=== PATIENT | male | born 1965 | race Caucasian/White ===

== ENCOUNTER 2023-01-13 10:21 | Inpatient (IN) | payer SELFPAY ==
[~2023-01-13] VITALS: Ht 167.7 cm; Wt 67.6 kg
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
[2023-01-13 10:41] LABS: BASOPHILS % (AUTO) 0 % (0-10); EOSINOPHILS % (AUTO) 0 % (0-10); HEMATOCRIT 41 % (40-54); HEMOGLOBIN 14.4 g/dL (13.3-17.7); LYMPHOCYTES # (AUTO) 1.6 10^3/uL (1.0-4.0); LYMPHOCYTES % (AUTO) 15 % (12-44); MEAN CORPUSCULAR HEMOGLOBIN 31 pg (25-34); MEAN CORPUSCULAR HGB CONC 35 g/dL (32-36); MEAN CORPUSCULAR VOLUME 88 fL (80-99); MEAN PLATELET VOLUME 11.1 fL (9.0-12.2); MONOCYTES # (AUTO) 0.3 10^3/uL (0.0-1.0); MONOCYTES % (AUTO) 3 % (0-12); NEUTROPHILS # (AUTO) 8.4 10^3/uL (1.8-7.8); NEUTROPHILS % (AUTO) 81 % (42-75); PLATELET COUNT 164 10^3/uL (130-400); WHITE BLOOD COUNT 10.3 10^3/uL (4.3-11.0)
[2023-01-13 10:45] LABS: CLARITY,URINE CLOUDY; COLOR,URINE YELLOW; GLUCOSE, URINE (UA) TRACE (NEGATIVE); KETONES,URINE TRACE (NEGATIVE); LEUKOCYTE ESTERASE ,URINE NEGATIVE (NEGATIVE); NITRITE,URINE NEGATIVE (NEGATIVE); PROTEIN,URINE 1+ (NEGATIVE)
--- NOTE | 2023-01-13 10:56 | Diagnostic Imaging Report ---
INDICATION: Chest congestion and shortness of breath Frontal chest obtained at 1044 a.m. There are extensive bibasilar infiltrates, left worse than right, compatible with pneumonia. There is no pneumothorax or definite pleural fluid. Heart is normal in size. IMPRESSION: Extensive bilateral infiltrates are present compatible with pneumonia, left worse than right. Follow-up is recommended. Dictated by: Dictated on workstation # [id number]
[2023-01-13] MEDS ORDERED: cefTRIAXone 1 GM PRE-MIX 50 ML IV ONE (11:15)
[2023-01-13] MEDS ORDERED: NS IV 1000 ML 1,000 ML IV SCH (11:15)
[2023-01-13] MEDS ORDERED: AZITHROMYCIN INJECTION 500 MG in NS (IVPB) 250 ML IV ONE (11:15)
[2023-01-13 11:18] LABS: CARBON DIOXIDE 22 MMOL/L (21-32); CHLORIDE 85 MMOL/L (98-107); POTASSIUM 4.7 MMOL/L (3.6-5.0); SODIUM 123 MMOL/L (135-145)
[2023-01-13 11:19] LABS: ALANINE AMINOTRANSFERASE 31 U/L (0-55); ALBUMIN 2.7 GM/DL (3.2-4.5); ALKALINE PHOSPHATASE 134 U/L (40-136); BILIRUBIN,TOTAL 1.2 MG/DL (0.1-1.0); BUN/CREATININE RATIO 25; CALCIUM 8.7 MG/DL (8.5-10.1); CREATININE SERUM 1.12 MG/DL (0.60-1.30); GFR ESTIMATED 77; GLUCOSE 84 MG/DL (70-105); MAGNESIUM 1.6 MG/DL (1.6-2.4); TOTAL PROTEIN 6.7 GM/DL (6.4-8.2)
[2023-01-13 11:23] LABS: AMPHETAMINE SCREEN, URINE POSITIVE (NEGATIVE); BARBITURATE SCREEN URINE NEGATIVE (NEGATIVE); BENZODIAZEPINES SCREEN URINE NEGATIVE (NEGATIVE); CANNABINOID SCREEN, URINE NEGATIVE (NEGATIVE); COCAINE SCREEN URINE NEGATIVE (NEGATIVE); METHADONE STAT NEGATIVE (NEGATIVE); OPIATE SCREEN URINE NEGATIVE (NEGATIVE); OXYCODONE STAT NEGATIVE (NEGATIVE); PROPOXYPHENE STAT NEGATIVE (NEGATIVE); TRICYCLIC ANTIDEPRESSANTS SCRE NEGATIVE (NEGATIVE)
[2023-01-13 11:28] LABS: BACTERIA,URINE MODERATE /HPF; SQUAMOUS EPITHELIAL CELL,UR RARE /HPF
[2023-01-13 11:46] LABS: BAND NEUTROPHILS 27 %; BASOPHILS % (MANUAL) 0 %; BLAST CELLS 1 %; EOSINOPHILS % (MANUAL) 0 %; LYMPHOCYTES % (MANUAL) 20 %; MONOCYTES % (MANUAL) 3 %; NEUTROPHILS % (MANUAL) 49 %
[2023-01-13 14:36] LABS: BILIRUBIN,URINE 2+ (NEGATIVE)
[2023-01-13] MEDS ORDERED: ONDANSETRON 4 MG/2 ML (SDV) Z0FRAN IV PRN (14:45)
[2023-01-13] MEDS ORDERED: MELATONIN 3 MG TABLET PO PRN (14:45)
[2023-01-13] MEDS: NS IV 1000 ML 1,000 ML IV SCH (15:04)
[2023-01-13] MEDS: ENOXAPARIN 40 MG/0.4 ML (LOVENOX) SYR SC SCH (15:11)
[2023-01-13 15:13] LABS: POTASSIUM 4.8 MMOL/L (3.6-5.0)
[2023-01-13 15:14] LABS: CALCIUM 8.3 MG/DL (8.5-10.1)
[2023-01-13 15:19] LABS: CREATININE SERUM 0.94 MG/DL (0.60-1.30)
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
[2023-01-13] MEDS: methylPREDNISolone 125 MG (Solu-MEDROL) VIAL IV SCH (17:47)
[2023-01-13] MEDS: ACETAMINOPHEN 325 MG TABLET PO PRN (17:52)
[2023-01-13] MEDS ORDERED: RT-ALBUTEROL/IPRATROPIUM 3 ML (DUONEB) VIAL IH SCH (18:00)
[2023-01-13] MEDS: KETOROLAC 15 MG/ML VIAL IVP PRN (18:25)
[2023-01-13] MEDS: RT-ALBUTEROL/IPRATROPIUM 3 ML (DUONEB) VIAL IH PRN (18:55)
[2023-01-13] MEDS ORDERED: NS IV 1000 ML 1,000 ML IV ONE (21:00)
[2023-01-13] MEDS: RT-ALBUTEROL SULF 2.5 MG/3 ML PRE-MIX VIAL INH SCH (21:35)
[2023-01-13 21:42] LABS: CALCIUM 8.2 MG/DL (8.5-10.1); CREATININE SERUM 0.85 MG/DL (0.60-1.30); POTASSIUM 4.3 MMOL/L (3.6-5.0)
[2023-01-14] MEDS: methylPREDNISolone 125 MG (Solu-MEDROL) VIAL IV SCH ×2 (00:07→06:01)
[2023-01-14] MEDS: NS IV 1000 ML 1,000 ML IV SCH ×4 (00:08→19:57)
[2023-01-14] MEDS: KETOROLAC 15 MG/ML VIAL IVP PRN ×3 (00:10→19:53)
[2023-01-14] MEDS: RT-ALBUTEROL/IPRATROPIUM 3 ML (DUONEB) VIAL IH PRN (02:59)
[2023-01-14 06:18] LABS: HEMATOCRIT 34 % (40-54); HEMOGLOBIN 12.6 g/dL (13.3-17.7); MEAN CORPUSCULAR HEMOGLOBIN 32 pg (25-34); MEAN CORPUSCULAR HGB CONC 37 g/dL (32-36); MEAN CORPUSCULAR VOLUME 86 fL (80-99); MEAN PLATELET VOLUME 11.7 fL (9.0-12.2); PLATELET COUNT 165 10^3/uL (130-400); WHITE BLOOD COUNT 26.8 10^3/uL (4.3-11.0)
[2023-01-14 06:33] LABS: POTASSIUM 4.4 MMOL/L (3.6-5.0)
[2023-01-14 06:34] LABS: CALCIUM 8.1 MG/DL (8.5-10.1)
[2023-01-14 06:38] LABS: CREATININE SERUM 0.7 MG/DL (0.60-1.30)
[2023-01-14] MEDS: RT-ALBUTEROL SULF 2.5 MG/3 ML PRE-MIX VIAL INH SCH ×5 (06:41→21:55)
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
[2023-01-14] MEDS: guaiFENesin/DM (ROBITUSSIN DM) 10 ML UDC PO PRN ×2 (12:14→19:52)
[2023-01-14] MEDS: cefTRIAXone 1 GM PRE-MIX 50 ML IV SCH (12:14)
[2023-01-14] MEDS: ENOXAPARIN 40 MG/0.4 ML (LOVENOX) SYR SC SCH (14:38)
[2023-01-14 15:51] VITALS: BP 124/73
[2023-01-14] MEDS ORDERED: GABA300C PO (16:08)
[2023-01-14] MEDS ORDERED: ACET-2267 PO (16:08)
[2023-01-14] MEDS ORDERED: CALCIUM CARBONATE 500 MG (TUMS) TAB.CHEW PO PRN (16:30)
[2023-01-14 19:33] VITALS: BP 115/67
[2023-01-14] MEDS: ACETAMINOPHEN 325 MG TABLET PO PRN (19:47)
[2023-01-14 23:17] VITALS: BP 131/76
[2023-01-15] MEDS: RT-ALBUTEROL SULF 2.5 MG/3 ML PRE-MIX VIAL INH SCH (02:43)
[2023-01-15 03:43] VITALS: BP 123/76
[2023-01-15 06:21] LABS: HEMATOCRIT 32 % (40-54); HEMOGLOBIN 11.5 g/dL (13.3-17.7); MEAN CORPUSCULAR HEMOGLOBIN 31 pg (25-34); MEAN CORPUSCULAR HGB CONC 36 g/dL (32-36); MEAN CORPUSCULAR VOLUME 86 fL (80-99); MEAN PLATELET VOLUME 11.7 fL (9.0-12.2); PLATELET COUNT 162 10^3/uL (130-400)
[2023-01-15 06:35] LABS: POTASSIUM 3.8 MMOL/L (3.6-5.0)
[2023-01-15 06:36] LABS: CALCIUM 8.8 MG/DL (8.5-10.1)
[2023-01-15 06:38] LABS: WHITE BLOOD COUNT 37.5 10^3/uL (4.3-11.0)
[2023-01-15 06:40] LABS: CREATININE SERUM 0.68 MG/DL (0.60-1.30)
[2023-01-15] MEDS ORDERED: RT-ALBUTEROL SULF 2.5 MG/3 ML PRE-MIX VIAL INH PRN (07:15)
[2023-01-15] MEDS: RT-ALBUTEROL/IPRATROPIUM 3 ML (DUONEB) VIAL IH SCH ×4 (07:19→19:05)
[2023-01-15 07:23] VITALS: BP 129/79
[2023-01-15] MEDS: predniSONE 20 MG TAB PO SCH (08:10)
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
[2023-01-15 11:22] VITALS: BP 129/77
[2023-01-15] MEDS: cefTRIAXone 1 GM PRE-MIX 50 ML IV SCH (11:27)
[2023-01-15] MEDS: NS IV 1000 ML 1,000 ML IV SCH (11:28)
[2023-01-15] MEDS: polyethylene glycoL POWDER 17 GM (MIRALAX) PACK PO PRN (13:37)
[2023-01-15] MEDS: ENOXAPARIN 40 MG/0.4 ML (LOVENOX) SYR SC SCH (14:11)
[2023-01-15 16:15] VITALS: BP 113/69
[2023-01-15] MEDS: ACETAMINOPHEN 325 MG TABLET PO PRN (17:21)
[2023-01-15] MEDS ORDERED: BISACODYL 10 MG SUPP (DULCOLAX) PR PRN (17:30)
[2023-01-15] MEDS ORDERED: BISACODYL 10 MG SUPP (DULCOLAX) PR NR (17:30)
[2023-01-15 20:12] VITALS: BP 128/86
[2023-01-15 23:44] VITALS: BP 139/82
[2023-01-16] VITALS (7 sets, daily range): BP systolic 126–134; BP diastolic 75–85
[2023-01-16] MEDS: NS IV 1000 ML 1,000 ML IV SCH ×3 (02:08→18:50)
[2023-01-16] MEDS: RT-ALBUTEROL/IPRATROPIUM 3 ML (DUONEB) VIAL IH SCH ×4 (03:06→19:28)
[2023-01-16 05:57] LABS: HEMATOCRIT 31 % (40-54); HEMOGLOBIN 11.2 g/dL (13.3-17.7); MEAN CORPUSCULAR HEMOGLOBIN 31 pg (25-34); MEAN CORPUSCULAR HGB CONC 36 g/dL (32-36); MEAN CORPUSCULAR VOLUME 85 fL (80-99); MEAN PLATELET VOLUME 11.2 fL (9.0-12.2); PLATELET COUNT 160 10^3/uL (130-400)
[2023-01-16 06:11] LABS: POTASSIUM 3.9 MMOL/L (3.6-5.0); WHITE BLOOD COUNT 36.7 10^3/uL (4.3-11.0)
[2023-01-16 06:13] LABS: CALCIUM 8.5 MG/DL (8.5-10.1)
[2023-01-16 06:17] LABS: CREATININE SERUM 0.53 MG/DL (0.60-1.30)
[2023-01-16] MEDS: predniSONE 20 MG TAB PO SCH (08:36)
[2023-01-16] MEDS: CEFEPIME INJECTION 1,000 MG in NS (IVPB) 50 ML IV SCH ×3 (10:29→21:39)
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
[2023-01-16] MEDS: ENOXAPARIN 40 MG/0.4 ML (LOVENOX) SYR SC SCH (15:41)
[2023-01-16] MEDS: polyethylene glycoL POWDER 17 GM (MIRALAX) PACK PO PRN (15:42)
[2023-01-17 03:57] VITALS: BP 126/74
[2023-01-17] MEDS: CEFEPIME INJECTION 1,000 MG in NS (IVPB) 50 ML IV SCH ×4 (05:03→21:31)
[2023-01-17 06:00] LABS: HEMATOCRIT 31 % (40-54); MEAN CORPUSCULAR HEMOGLOBIN 31 pg (25-34); MEAN CORPUSCULAR HGB CONC 36 g/dL (32-36); MEAN CORPUSCULAR VOLUME 85 fL (80-99); MEAN PLATELET VOLUME 11.1 fL (9.0-12.2); PLATELET COUNT 205 10^3/uL (130-400); WHITE BLOOD COUNT 26.1 10^3/uL (4.3-11.0)
[2023-01-17 06:10] LABS: POTASSIUM 3.7 MMOL/L (3.6-5.0)
[2023-01-17 06:11] LABS: CALCIUM 8.1 MG/DL (8.5-10.1)
[2023-01-17 06:15] LABS: CREATININE SERUM 0.53 MG/DL (0.60-1.30)
[2023-01-17] MEDS: RT-ALBUTEROL/IPRATROPIUM 3 ML (DUONEB) VIAL IH SCH ×2 (07:30→21:24)
[2023-01-17 08:02] VITALS: BP 133/82
[2023-01-17] MEDS: predniSONE 20 MG TAB PO SCH (08:50)
[2023-01-17] MEDS: SODIUM CHLORIDE 1 GM TABLET PO SCH ×2 (09:44→21:30)
[2023-01-17] MEDS ORDERED: FLEET ENEMA ADULT 1 EA BTL PR PRN (11:15)
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
[2023-01-17] MEDS ORDERED: FUROSEMIDE 40 MG/4 ML INJ (LASIX) IVP NR (11:45)
[2023-01-17 12:13] VITALS: BP 123/80
[2023-01-17] MEDS: ENOXAPARIN 40 MG/0.4 ML (LOVENOX) SYR SC SCH (15:34)
[2023-01-17] MEDS: polyethylene glycoL POWDER 17 GM (MIRALAX) PACK PO PRN (15:39)
[2023-01-17 15:52] VITALS: BP 115/73
[2023-01-17 19:32] VITALS: BP 134/85
[2023-01-17 23:17] VITALS: BP 118/77
[2023-01-17] MEDS: ACETAMINOPHEN 325 MG TABLET PO PRN (23:21)
[2023-01-18 04:01] VITALS: BP 118/76
[2023-01-18] MEDS: CEFEPIME INJECTION 1,000 MG in NS (IVPB) 50 ML IV SCH ×3 (04:01→15:43)
[2023-01-18] MEDS: polyethylene glycoL POWDER 17 GM (MIRALAX) PACK PO PRN (04:16)
[2023-01-18 05:38] LABS: HEMATOCRIT 29 % (40-54); HEMOGLOBIN 10.5 g/dL (13.3-17.7); MEAN CORPUSCULAR HEMOGLOBIN 31 pg (25-34); MEAN CORPUSCULAR HGB CONC 36 g/dL (32-36); MEAN CORPUSCULAR VOLUME 86 fL (80-99); MEAN PLATELET VOLUME 10.8 fL (9.0-12.2); PLATELET COUNT 255 10^3/uL (130-400); WHITE BLOOD COUNT 20.5 10^3/uL (4.3-11.0)
[2023-01-18 05:44] LABS: POTASSIUM 3.6 MMOL/L (3.6-5.0)
[2023-01-18 05:45] LABS: CALCIUM 7.7 MG/DL (8.5-10.1)
[2023-01-18 05:49] LABS: CREATININE SERUM 0.54 MG/DL (0.60-1.30)
[2023-01-18] MEDS: RT-ALBUTEROL/IPRATROPIUM 3 ML (DUONEB) VIAL IH SCH (07:20)
[2023-01-18 07:57] VITALS: BP 124/75
[2023-01-18] MEDS: predniSONE 20 MG TAB PO SCH (08:40)
[2023-01-18] MEDS: SODIUM CHLORIDE 1 GM TABLET PO SCH (08:41)
--- NOTE | 2023-01-18 10:34 | Discharge Summary ---
Diagnosis/Chief Complaint Date of Admission Jan 13, 2023 at 2:30 pm Date of Discharge Admission Diagnosis Septic Shock [facility] Discharge Diagnosis (1) Community acquired pneumonia Status: Acute (2) Hyponatremia (3) Dehydration Status: Acute (4) COPD (chronic obstructive pulmonary disease) Discharge Summary Discharge Physical Exam Allergies: Coded Allergies: No Known Drug Allergies (Unverified , 01/13/23) Vitals & I&Os Vital Signs Date Time Temp Pulse Resp B/P (MAP) Pulse Ox O2 Delivery O2 Flow Rate FiO2 01/18/23 08:00 95 Room Air 01/18/23 07:57 37.4 70 18 124/75 (91) 01/18/23 07:20 0.00 General Appearance: No Apparent Distress, Thin Respiratory: Lungs Clear, No Respiratory Distress Cardiovascular: Regular Rate, Rhythm, No Murmur Neurologic/Psychiatric: Alert, Oriented x3 Hospital Course Patient was admitted secondary to septic shock due to pneumonia. Cultures were obtained and revealed strep pneumoniae and his blood. He initially improved with just Rocephin but then had a recurrence of fever and elevated leukocytosis into the 30s. At first this was thought to be due to steroids but it persisted and so antibiotic regimen was changed to cefepime. Following this he improved significantly. He did have problems with constipation though this resolved with a Fleet enema. His white blood cell count remained around 20 which was trending down and I offered another day in the hospital to ensure that this continue to improve but he declined stating he needed to get home to "his critters." He was found to be hyponatremic as well and this was though to be due to beer potomania . This improved with IV fluids but he developed some lower extremity edema so was briefly switched to salt tabs instead. He was discharged home in improved condition to follow-up with his primary care physician. I did recommend cessation of illicit drug use and tobacco use throughout the admission. Labs (last 24 hrs) Laboratory Tests 01/18/23 05:22: White Blood Count 20.5H, Red Blood Count 3.40L, Hemoglobin 10.5L, Hematocrit 29L , Mean Corpuscular Volume 86, Mean Corpuscular Hemoglobin 31, Mean Corpuscular Hemoglobin Concent 36, Red Cell Distribution Width 13.5, Platelet Count 255, Mean Platelet Volume 10.8, Sodium Level 130L, Potassium Level 3.6, Chloride Level 95L, Carbon Dioxide Level 22, Anion Gap 13, Blood Urea Nitrogen 12, Creatinine 0.54L, Estimat Glomerular Filtration Rate 116, BUN/Creatinine Ratio 22, Glucose Level 117H, Calcium Level 7.7L Microbiology 01/16/23 Blood Culture - Preliminary, Resulted No growth 01/13/23 MRSA Screen - Final, Complete MRSA not isolated 01/13/23 Urine Culture - Final, Complete NO GROWTH Patient resulted labs reviewed. Pending Labs Laboratory Tests 01/18/23 05:22: White Blood Count 20.5, Red Blood Count 3.40, Hemoglobin 10.5, Hematocrit 29, Mean Corpuscular Volume 86, Mean Corpuscular Hemoglobin 31, Mean Corpuscular Hemoglobin Concent 36, Red Cell Distribution Width 13.5, Platelet Count 255, Mean Platelet Volume 10.8, Sodium Level 130, Potassium Level 3.6, Chloride Level 95, Carbon Dioxide Level 22, Anion Gap 13, Blood Urea Nitrogen 12, Creatinine 0.54, Estimat Glomerular Filtration Rate 116, BUN/Creatinine Ratio 22, Glucose Level 117, Calcium Level 7.7 Imaging: Reviewed Imaging Report Discussion & Recommendations Discharge Planning: >30 minutes discharge planning Discharge Home Medications: Active Scripts Active Cefdinir 300 Mg Capsule 300 Mg PO BID Reported Tylenol Extra Strength (Acetaminophen) 500 Mg Tablet 1,000 Mg PO TID PRN Neurontin (Gabapentin) 300 Mg Capsule 300 Mg PO HS Instructions to patient/family Please see electronic discharge instructions given to patient. Copy Copies To 1: BETSY Williamson MD Jan 18, 2023 10:34 am
--- NOTE | 2023-01-18 10:35 | Discharge Inst-Simple/Standard ---
Discharge Inst-Standard Discharge Medications New, Converted or Re-Newed RX: Transmitted to Pharmacy Patient Instructions/Follow Up Plan of Care/Instructions/FU: Please continue to take your medications as written. Please follow up with your primary care doctor to follow up this hospital stay. Activity as Tolerated: Yes Discharge Diet: No Restrictions Return to The Hospital For: Chest pain, shortness of breath, fever, weakness, if you feel you are getting worse. BETSY MURRIETA MD Jan 18, 2023 10:35 am
[2023-01-18] MEDS ORDERED: CEFD300C3 PO (10:36)
[2023-01-18] MEDS ORDERED: FLEET ENEMA ADULT 1 EA BTL PR NR (10:45)
[2023-01-18] MEDS ORDERED: FUROSEMIDE 40 MG/4 ML INJ (LASIX) IVP NR (10:45)
[2023-01-18 11:47] VITALS: BP 121/76
[2023-01-18] MEDS: ACETAMINOPHEN 325 MG TABLET PO PRN (13:56)
[2023-01-18 15:29] VITALS: BP 127/83
[2023-01-18] MEDS: ENOXAPARIN 40 MG/0.4 ML (LOVENOX) SYR SC SCH (15:42)
[2023-01-18 15:51] VITALS: BP 127/83
== END 2023-01-18 16:25 | disposition home or self-care (01) | DRG 871 ==
LOC: ER FS 10:23 → ICU 14:30 → 4TH 01-14 15:03
PROVIDERS: ADMIT Family Medicine; ATTEND Family Medicine
DX: A41.9 Sepsis, unspecified organism (principal); J18.9 Pneumonia, unspecified organism; R65.21 Severe sepsis with septic shock; E87.1 Hypo-osmolality and hyponatremia; J44.0 Chronic obstructive pulmonary disease with (acute) lower respiratory infection; I95.9 Hypotension, unspecified; F15.10 Other stimulant abuse, uncomplicated; E86.0 Dehydration; F17.210 Nicotine dependence, cigarettes, uncomplicated; F10.90 Alcohol use, unspecified, uncomplicated; Y90.0 Blood alcohol level of less than 20 mg/100 ml; K59.00 Constipation, unspecified; F12.90 Cannabis use, unspecified, uncomplicated; Z20.822 Contact with and (suspected) exposure to COVID-19
CPT/HCPCS: 36415; 71045; 80048; 80053; 80306; 80320; 81000; 83605; 83735; 84484; 85007; 85027; 87040; 87077; 87081; 87088; 87636; 94640; 94664; 94760; 94761; 96361; 96365; 96375